=== PATIENT | female | born 1970 | race Caucasian/White ===

== ENCOUNTER 2019-03-16 08:24 | Day surgery (SDC) | payer OTHER ==
[~2019-03-16] VITALS: Ht 162.6 cm; Wt 69.4 kg
[2019-03-16] MEDS ORDERED: BUPIVACAINE-MPF/EPI 0.25% 30 ML VIAL INJ ONE (10:40)
[2019-03-16] MEDS ORDERED: ROCURONIUM 50 MG/5 ML VIAL IV ONE (11:21)
[2019-03-16] MEDS ORDERED: DEXAMETHASONE 4 MG/ML VIAL ONE (11:21)
[2019-03-16] MEDS ORDERED: DESFLURANE 240 ML BTL INH ONE (11:21)
[2019-03-16] MEDS ORDERED: ONDANSETRON 4 MG/2 ML VIAL ONE (11:21)
[2019-03-16] MEDS ORDERED: NEOSTIGMINE 1:1000 10 MG/10 ML VIAL ONE (11:21)
[2019-03-16] MEDS ORDERED: SUCCINYLCHOLINE CHLORIDE 200 MG/10 ML VIAL IVP ONE (11:21)
[2019-03-16] MEDS ORDERED: KETOROLAC 30 MG/ML VIAL ONE ×2 (11:21→13:38)
[2019-03-16] MEDS ORDERED: GLYCOPYRROLATE 0.2 MG/ML VIAL ONE (11:21)
[2019-03-16] MEDS ORDERED: LIDOCAINE 2% 100 MG/5 ML SYR IVP ONE (11:21)
[2019-03-16] MEDS ORDERED: ATROPINE 0.4 MG/ML VIAL ONE (11:21)
[2019-03-16] MEDS ORDERED: PROPOFOL 200 MG/20 ML VIAL IV ONE (11:21)
[2019-03-16] MEDS ORDERED: fentaNYL 0.05 MG/ML VIAL ONE (11:29)
[2019-03-16] MEDS ORDERED: MIDAZOLAM 2 MG/2 ML VIAL ONE (11:29)
[2019-03-16] MEDS ORDERED: ONDANSETRON 4 MG/2 ML VIAL IVP PRN (12:05)
[2019-03-16] MEDS ORDERED: HYDROmorphone 1 MG/ML AMP IVP PRN (12:05)
[2019-03-16] MEDS ORDERED: KETOROLAC 30 MG/ML VIAL IVP SCH (14:00)
== END 2019-03-16 14:35 | disposition home or self-care (01) ==
LOC: MDS 08:24 → MMU 08:25 → MDS 14:35
PROVIDERS: ATTEND Obstetrics & Gynecology
DX: N83.202 Unspecified ovarian cyst, left side (principal); I51.7 Cardiomegaly; Z88.1 Allergy status to other antibiotic agents; Z88.0 Allergy status to penicillin
CPT/HCPCS: 58720; 88307; 93005; J0330; J0461; J1100; J1885; J2001; J2250; J2405; J2704; J2710; J3010; J3490; J7120